=== PATIENT | male | born 1955 | race Caucasian/White ===

== ENCOUNTER 2016-12-27 11:09 | Emergency (ER) | payer MEDICAID, MEDICARE ==
--- NOTE | 2016-12-27 22:23 | RAD ---
LEFT CLAVICLE TWO VIEWS: Date: 12-27-16 Comparison: Shoulder 03-18-08 FINDINGS: There is a fracture at the junction of the middle and distal thirds of the clavicle with inferior an gulation of the distal fragment. Though this was not present in 2007, this does not appear acute but is an old, well healed fracture. The AC joint is not wide. The visible adjacent lung apex was clear . IMPRESSION: Old, healed, angulated fracture of the clavicle. POS: HOME
== END 2016-12-27 12:21 | disposition home or self-care (01) ==
LOC: BURERS 11:09
DX: S43.402A Unspecified sprain of left shoulder joint, initial encounter (principal); W10.9XXA Fall (on) (from) unspecified stairs and steps, initial encounter

== ENCOUNTER 2022-07-08 23:13 | Emergency (ER) | payer OTHER, MEDICARE ==
[2022-07-08] MEDS ORDERED: Lidocaine 4% Cream 5 GM TUBE w/ Tegaderm ONE (23:43)
[2022-07-09] MEDS ORDERED: Boostrix 0.5 ML (Tdap) VIAL (>/=7 yrs of age) ONE (00:15)
== END 2022-07-09 00:32 | disposition home or self-care (01) ==
LOC: BURERS 23:13
DX: S01.01XA Laceration without foreign body of scalp, initial encounter (principal); Z23 Encounter for immunization; W19.XXXA Unspecified fall, initial encounter
CPT/HCPCS: 12002; 90471; 90715